=== PATIENT | male | born 1960 | race African-American/Black ===

== ENCOUNTER 2020-11-08 13:08 | Inpatient (IN) | payer OTHER ==
[2020-11-08 14:01] VITALS: BMI 21.7
[2020-11-08] MEDS ORDERED: MENTHOL/PHENOL 1 EACH UD MM PRN (15:56)
[2020-11-08] MEDS ORDERED: ACETAMINOPHEN 325 MG TABLET (FP) PO PRN ×2 (15:56)
[2020-11-08] MEDS ORDERED: clonazePAM 0.5 MG ODT TABLETS SL PRN (15:56)
[2020-11-08] MEDS ORDERED: cloNIDine HCL 0.1 MG TABLET PO PRN (15:56)
[2020-11-08] MEDS ORDERED: ONDANSETRON *ODT* 4 MG TABLET SL PRN (15:56)
[2020-11-08] MEDS ORDERED: MAGNESIUM HYDROX 2400MG/30ML ORAL SUSPENSION 30 ML CUP PO PRN (15:56)
[2020-11-08] MEDS ORDERED: MAG HYDROX/AL HYDROX/SIMETH 30 ML UNIT-DOSE CUP PO PRN (15:56)
[2020-11-08] MEDS ORDERED: methaDONE HCL 10 MG TABLET (FOR DETOX USE ONLY) PO ONE (15:56)
[2020-11-08] MEDS ORDERED: MAGNESIUM CITRATE 300 ML BOTTLE PO PRN (15:56)
[2020-11-08] MEDS ORDERED: BISMUTH SUBSALICYLATE 524 MG/30 ML PO PRN (15:56)
[2020-11-08] MEDS ORDERED: IBUPROFEN 400 MG TABLET (FP) PO PRN (15:56)
[2020-11-08] MEDS: diazePAM 5 MG TABLET PO SCH ×2 (18:52→22:09)
[2020-11-08] MEDS ORDERED: ALBUTEROL SO4 HFA INHALER IH PRN (18:59)
[2020-11-08] MEDS: NICOTINE 10 MG CARTRIDGE (INHALER) IH PRN (19:18)
[2020-11-08] MEDS ORDERED: hydrALAZINE HCL 50 MG TABLET (FP) PO SCH ×2 (19:34→22:00)
[2020-11-08] MEDS: NIFEdipine E.R. 90 MG TABLET PO SCH (22:09)
[2020-11-08] MEDS: hydrALAZINE HCL 50 MG TABLET (FP) PO SCH (22:09)
[2020-11-08] MEDS: THIAMINE HCL 100 MG TABLET (FP) PO SCH (22:09)
[2020-11-08] MEDS: MELATONIN 5 MG TABLETS PO SCH (22:09)
[2020-11-09] MEDS: diazePAM 5 MG TABLET PO SCH ×4 (05:49→22:16)
[2020-11-09] MEDS: hydrALAZINE HCL 50 MG TABLET (FP) PO SCH ×3 (05:49→22:17)
[2020-11-09] MEDS ORDERED: methaDONE HCL 10 MG TABLET (FOR DETOX USE ONLY) ONE (09:52)
[2020-11-09] MEDS ORDERED: NIFEdipine E.R. 90 MG TABLET PO SCH ×2 (10:00→21:00)
[2020-11-09] MEDS: PRENATAL VITAMINS W/ FOLIC ACID TABLET (FP) PO SCH (10:14)
[2020-11-09] MEDS: METHOCARBAMOL 500 MG TABLET PO PRN (10:14)
[2020-11-09] MEDS: NIFEdipine E.R. 90 MG TABLET PO SCH (10:15)
[2020-11-09 10:34] LABS: HEMATOCRIT 36.2 % (35.4-49); HEMOGLOBIN 12.2 GM/dL (11.7-16.9); MCH 30.7 pg (25.7-33.7); MCHC 33.8 g/dl (32.0-35.9); MEAN CELL VOLUME 90.8 fl (80-96); MEAN PLT VOLUME 9.2 fl (7.5-11.1); PLATELET COUNT 263 10^3/uL (134-434); RBC 3.99 M/mm3 (4.00-5.60); RDW 13.8 % (11.9-15.9); WHITE BLOOD COUNT 6.9 K/mm3 (4.0-10.0)
[2020-11-09 10:43] LABS: ALBUMIN 3.9 g/dl (3.4-5.0); BLOOD UREA NITROGEN 41.9 mg/dL (7-18); CALCIUM 8.9 mg/dL (8.5-10.1)
[2020-11-09 10:44] LABS: BILIRUBIN,TOTAL 0.4 mg/dL (0.2-1)
[2020-11-09 10:45] LABS: TOT PROT 8.1 g/dl (6.4-8.2)
[2020-11-09 10:46] LABS: CREATININE 3.2 mg/dL (0.55-1.3)
[2020-11-09] MEDS: NICOTINE 10 MG CARTRIDGE (INHALER) IH PRN (17:55)
[2020-11-09] MEDS: THIAMINE HCL 100 MG TABLET (FP) PO SCH (22:16)
[2020-11-09] MEDS: MELATONIN 5 MG TABLETS PO SCH (22:17)
[2020-11-10] MEDS: diazePAM 5 MG TABLET PO SCH ×3 (06:10→22:03)
[2020-11-10] MEDS: hydrALAZINE HCL 50 MG TABLET (FP) PO SCH ×3 (06:10→22:03)
[2020-11-10] MEDS: NICOTINE 10 MG CARTRIDGE (INHALER) IH PRN (07:57)
[2020-11-10] MEDS ORDERED: methaDONE HCL 10 MG TABLET (FOR DETOX USE ONLY) PO ONE (10:00)
[2020-11-10] MEDS: PRENATAL VITAMINS W/ FOLIC ACID TABLET (FP) PO SCH (10:02)
[2020-11-10] MEDS: METHOCARBAMOL 500 MG TABLET PO PRN (10:02)
[2020-11-10] MEDS: diazePAM 5 MG TABLET PO PRN (10:04)
[2020-11-10] MEDS: NIFEdipine E.R. 90 MG TABLET PO SCH (10:07)
[2020-11-10] MEDS: MELATONIN 5 MG TABLETS PO SCH (22:03)
[2020-11-10] MEDS: THIAMINE HCL 100 MG TABLET (FP) PO SCH (22:03)
[2020-11-11] MEDS: hydrALAZINE HCL 50 MG TABLET (FP) PO SCH (07:14)
[2020-11-11] MEDS: diazePAM 5 MG TABLET PO SCH ×2 (07:14→18:36)
[2020-11-11] MEDS: NICOTINE 10 MG CARTRIDGE (INHALER) IH PRN ×2 (07:17→18:36)
[2020-11-11] MEDS ORDERED: methaDONE HCL 10 MG TABLET (FOR DETOX USE ONLY) ONE (09:13)
[2020-11-11] MEDS: NIFEdipine E.R. 90 MG TABLET PO SCH (09:47)
[2020-11-11] MEDS: PRENATAL VITAMINS W/ FOLIC ACID TABLET (FP) PO SCH (09:47)
[2020-11-11] MEDS: diazePAM 5 MG TABLET PO PRN ×2 (09:48→13:51)
[2020-11-11] MEDS: cloNIDine HCL 0.1 MG TABLET PO PRN ×2 (12:43→18:36)
[2020-11-11] MEDS: hydrALAZINE HCL 25 MG TABLET (FP) PO SCH ×2 (14:13→22:31)
[2020-11-11] MEDS: THIAMINE HCL 100 MG TABLET (FP) PO SCH (22:31)
[2020-11-11] MEDS: MELATONIN 5 MG TABLETS PO SCH (22:33)
[2020-11-12] MEDS: hydrALAZINE HCL 25 MG TABLET (FP) PO SCH ×3 (05:56→22:18)
[2020-11-12] MEDS: METHOCARBAMOL 500 MG TABLET PO PRN (05:57)
[2020-11-12] MEDS ORDERED: diazePAM 5 MG TABLET PO ONE (06:00)
[2020-11-12] MEDS ORDERED: methaDONE HCL 10 MG TABLET (FOR DETOX USE ONLY) PO ONE (10:00)
[2020-11-12] MEDS: PRENATAL VITAMINS W/ FOLIC ACID TABLET (FP) PO SCH (10:17)
[2020-11-12] MEDS: NIFEdipine E.R. 90 MG TABLET PO SCH (11:23)
[2020-11-12] MEDS: cloNIDine HCL 0.1 MG TABLET PO PRN (12:37)
[2020-11-12] MEDS: hydrOXYzine PAMOATE 25 MG CAPSULE (FP) PO PRN ×2 (13:55→22:20)
[2020-11-12] MEDS: THIAMINE HCL 100 MG TABLET (FP) PO SCH (22:18)
[2020-11-12] MEDS: MELATONIN 5 MG TABLETS PO SCH (22:20)
[2020-11-13] MEDS: hydrALAZINE HCL 25 MG TABLET (FP) PO SCH (06:20)
[2020-11-13 09:37] VITALS: BP 159/85; PULSE 109; TEMP 98
[2020-11-13] MEDS: METHOCARBAMOL 500 MG TABLET PO PRN (10:08)
[2020-11-13] MEDS: PRENATAL VITAMINS W/ FOLIC ACID TABLET (FP) PO SCH (10:08)
[2020-11-13] MEDS: NIFEdipine E.R. 90 MG TABLET PO SCH (10:08)
[2020-11-13] MEDS: hydrOXYzine PAMOATE 25 MG CAPSULE (FP) PO PRN (10:08)
== END 2020-11-13 10:51 | disposition home or self-care (01) | DRG 773 ==
LOC: YASAS 13:08 → Y6N 17:40
PROVIDERS: ADMIT Allergy & Immunology; ATTEND Allergy & Immunology
PROC: HZ2ZZZZ Detoxification Services for Substance Abuse Treatment (ICD-10-PCS; principal; 2020-11-08)
DX: F11.23 Opioid dependence with withdrawal (principal); F10.230 Alcohol dependence with withdrawal, uncomplicated; F13.10 Sedative, hypnotic or anxiolytic abuse, uncomplicated; F17.210 Nicotine dependence, cigarettes, uncomplicated; I12.9 Hypertensive chronic kidney disease with stage 1 through stage 4 chronic kidney disease, or unspecified chronic kidney disease; N18.30 Chronic kidney disease, stage 3 unspecified; J44.9 Chronic obstructive pulmonary disease, unspecified
CPT/HCPCS: 36415; 80053; 85027; 86780; 93005; 93010; C9803; J0735; U0003; U0005